=== PATIENT | female | born 1965 | race Caucasian/White ===

== ENCOUNTER 2017-04-20 12:20 | Outpatient (CLI) | payer BC | END 2017-04-20 20:01 | disposition home or self-care (01) | LOC: SRD 12:20 | PROVIDERS: ATTEND Internal Medicine | DX: M67.431 Ganglion, right wrist (principal) ==

== ENCOUNTER 2017-04-30 10:05 | Outpatient (CLI) | payer BC | END 2017-04-30 19:58 | disposition home or self-care (01) | LOC: SMI 10:05 | PROVIDERS: ATTEND Orthopaedic Surgery | DX: M19.031 Primary osteoarthritis, right wrist (principal) | CPT/HCPCS: 73221 ==

== ENCOUNTER 2017-07-17 10:23 | Outpatient (CLI) | payer BC | END 2017-07-17 16:47 | disposition home or self-care (01) | LOC: SMA 10:23 | PROVIDERS: ATTEND Internal Medicine | DX: Z12.31 Encounter for screening mammogram for malignant neoplasm of breast (principal) | CPT/HCPCS: G0202 ==